=== PATIENT | male | born 1940 | race Caucasian/White ===

== ENCOUNTER 2021-03-25 16:23 | Inpatient (IN) ==
[2021-03-26] MEDS ORDERED: Benzonatate 100 MG CAPSULE PO PRN (02:19)
[2021-03-26] MEDS ORDERED: Naloxone 0.4 MG/ML INJ IVP PRN (02:20)
[2021-03-26] MEDS ORDERED: Ondansetron 4 MG/2 ML VIAL IVP PRN (02:20)
[2021-03-26] MEDS ORDERED: 0.9 % Sodium Chloride 1,000 ML IVC SCH (02:30)
[2021-03-26 04:30] LABS: Basophils % 0.2 %; Eosinophils # 0.1 K/mcL (0.0-0.6); Eosinophils % 1.1 %; Hematocrit 28.5 % (37.5-50.1); Hemoglobin 9.1 g/dL (12.9-16.9); Immature Granulocytes % 1.8 % (0-4); Lymphocytes # 0.6 K/mcL (0.6-4.6); Lymphocytes % 10.4 %; Mean Corpuscular HGB Conc 31.9 g/dL (31.6-35.5); Mean Corpuscular Hemoglobin 28.6 pg (28.0-33.3); Mean Corpuscular Volume 89.6 fL (83.0-100.0); Mean Platelet Volume 10.8 fL (9.4-12.4); Monocytes # 0.5 K/mcL (0.0-1.3); Monocytes % 9.5 %; Neutrophils # 4.2 K/mcL (1.6-8.9); Platelet Count 263 K/mcL (140-400); Red Blood Count 3.18 M/mcL (4.19-5.50); Red Cell Distribution Width 18.4 % (11.5-14.5); White Blood Count 5.5 K/mcL (4.3-11.1)
[2021-03-26] MEDS: Ipratropium 1 PUFF INHALER IH SCH ×5 (04:39→19:22)
[2021-03-26 05:04] LABS: Albumin 3.3 g/dL (3.5-5.7); Albumin/Globulin Ratio 1.1 (1.1-2.2); Bilirubin,Total 0.8 mg/dL (0.3-1.0); Calcium 8.8 mg/dL (8.6-10.3); Globulin 3.1 g/dL (2.4-3.5); Potassium 4.2 mEq/L (3.5-5.1); Total Protein 6.4 g/dL (6.4-8.9)
[2021-03-26] MEDS: valACYclovir 500 MG TABLET PO SCH (09:17)
[2021-03-26] MEDS: Apixaban 5 MG TABLET PO SCH ×2 (09:17→21:35)
[2021-03-26] MEDS: allopurinoL 100 MG TABLET PO SCH (09:18)
[2021-03-26] MEDS: amLODIPine 5 MG TABLET PO SCH (09:18)
[2021-03-27] MEDS: Ipratropium 1 PUFF INHALER IH SCH ×7 (00:07→20:59)
[2021-03-27 01:49] LABS: Hematocrit 25.6 % (37.5-50.1); Hemoglobin 8.1 g/dL (12.9-16.9); Mean Corpuscular HGB Conc 31.6 g/dL (31.6-35.5); Mean Corpuscular Hemoglobin 28.9 pg (28.0-33.3); Mean Corpuscular Volume 91.4 fL (83.0-100.0); Mean Platelet Volume 10.7 fL (9.4-12.4); Platelet Count 217 K/mcL (140-400); Red Cell Distribution Width 18.6 % (11.5-14.5)
[2021-03-27 02:10] LABS: Calcium 8.1 mg/dL (8.6-10.3); Potassium 4.2 mEq/L (3.5-5.1)
[2021-03-27] MEDS: amLODIPine 5 MG TABLET PO SCH (08:42)
[2021-03-27] MEDS: Apixaban 5 MG TABLET PO SCH ×2 (08:43→20:37)
[2021-03-27] MEDS: allopurinoL 100 MG TABLET PO SCH (08:43)
[2021-03-27] MEDS: valACYclovir 500 MG TABLET PO SCH (08:43)
[2021-03-27] MEDS: DAPTOmycin 750 MG in 0.9 % Sodium Chloride 100 ML IVPB SCH (14:22)
[2021-03-27] MEDS: Acetaminophen 325 MG TABLET PO PRN (23:24)
[2021-03-28] MEDS: Ipratropium 1 PUFF INHALER IH SCH ×7 (04:16→23:44)
[2021-03-28 08:04] LABS: Hemoglobin 9.2 g/dL (12.9-16.9); Mean Corpuscular HGB Conc 31.7 g/dL (31.6-35.5); Mean Corpuscular Hemoglobin 29.6 pg (28.0-33.3); Mean Corpuscular Volume 93.2 fL (83.0-100.0); Mean Platelet Volume 10.7 fL (9.4-12.4); Platelet Count 210 K/mcL (140-400); Red Blood Count 3.11 M/mcL (4.19-5.50); Red Cell Distribution Width 18.6 % (11.5-14.5); White Blood Count 6.2 K/mcL (4.3-11.1)
[2021-03-28 08:24] LABS: Calcium 8.2 mg/dL (8.6-10.3); Potassium 3.5 mEq/L (3.5-5.1)
[2021-03-28] MEDS: valACYclovir 500 MG TABLET PO SCH (09:47)
[2021-03-28] MEDS: allopurinoL 100 MG TABLET PO SCH (09:47)
[2021-03-28] MEDS ORDERED: Isovue-370 500 ML BOTTLE IVP ONE ×2 (09:47→13:41)
[2021-03-28] MEDS: amLODIPine 5 MG TABLET PO SCH (09:48)
[2021-03-28 09:57] LABS: Prothrombin Time 22.2 Seconds (9.4-12.1)
[2021-03-28 09:59] LABS: Albumin 3.2 g/dL (3.5-5.7); Albumin/Globulin Ratio 1.1 (1.1-2.2); Globulin 2.8 g/dL (2.4-3.5)
[2021-03-28] MEDS ORDERED: 0.9 % Sodium Chloride 1,000 ML IVC SCH (10:00)
[2021-03-28] MEDS: DAPTOmycin 750 MG in 0.9 % Sodium Chloride 100 ML IVPB SCH (14:40)
[2021-03-28] MEDS ORDERED: Perflutren Lipid Microsphere 1.3 ML in 0.9 % Sodium Chloride 8.7 ML IVP PRN (14:48)
[2021-03-28] MEDS: Lactobacillus 1 EACH CAP.SPRINK PO SCH (23:00)
[2021-03-29] MEDS: Ipratropium 1 PUFF INHALER IH SCH ×4 (04:40→20:14)
[2021-03-29 06:20] LABS: Basophils % 0.2 %; Eosinophils # 0.1 K/mcL (0.0-0.6); Eosinophils % 1.1 %; Immature Granulocytes % 7.2 % (0-4); Lymphocytes # 0.5 K/mcL (0.6-4.6); Lymphocytes % 7.2 %; Mean Corpuscular Hemoglobin 29.3 pg (28.0-33.3); Mean Corpuscular Volume 91.6 fL (83.0-100.0); Monocytes # 0.5 K/mcL (0.0-1.3); Monocytes % 8.1 %; Neutrophils # 4.7 K/mcL (1.6-8.9); Platelet Count 186 K/mcL (140-400); Red Blood Count 2.73 M/mcL (4.19-5.50); Red Cell Distribution Width 18.6 % (11.5-14.5); Segmented Neutrophils % 76.2 %; White Blood Count 6.2 K/mcL (4.3-11.1)
[2021-03-29 06:53] LABS: Albumin 2.9 g/dL (3.5-5.7); Albumin/Globulin Ratio 1.1 (1.1-2.2); Bilirubin,Total 0.8 mg/dL (0.3-1.0); Calcium 7.9 mg/dL (8.6-10.3); Globulin 2.6 g/dL (2.4-3.5); Magnesium 1.3 mg/dL (1.6-2.6); Phosphorous 3.4 mg/dL (2.7-4.5); Potassium 3.4 mEq/L (3.5-5.1); Total Protein 5.5 g/dL (6.4-8.9)
[2021-03-29 06:54] LABS: Anisocytosis 1+ (Not Present); Platelet Estimate Normal (Normal)
[2021-03-29] MEDS: allopurinoL 100 MG TABLET PO SCH (08:05)
[2021-03-29] MEDS: amLODIPine 5 MG TABLET PO SCH (08:06)
[2021-03-29] MEDS: Lactobacillus 1 EACH CAP.SPRINK PO SCH ×2 (08:31→19:34)
[2021-03-29] MEDS: Acetaminophen 325 MG TABLET PO PRN (08:39)
[2021-03-29] MEDS: Furosemide 40 MG TABLET PO SCH (15:36)
[2021-03-29] MEDS: DAPTOmycin 750 MG in 0.9 % Sodium Chloride 100 ML IVPB SCH (15:36)
[2021-03-30] MEDS: Acetaminophen 325 MG TABLET PO PRN (01:35)
[2021-03-30] MEDS: Ipratropium 1 PUFF INHALER IH SCH ×4 (03:42→20:43)
[2021-03-30 06:53] LABS: Hematocrit 24.4 % (37.5-50.1); Hemoglobin 7.7 g/dL (12.9-16.9); Mean Corpuscular HGB Conc 31.6 g/dL (31.6-35.5); Mean Corpuscular Hemoglobin 28.9 pg (28.0-33.3); Mean Corpuscular Volume 91.7 fL (83.0-100.0); Mean Platelet Volume 10.8 fL (9.4-12.4); Platelet Count 179 K/mcL (140-400); Red Blood Count 2.66 M/mcL (4.19-5.50); Red Cell Distribution Width 18.6 % (11.5-14.5); White Blood Count 6.3 K/mcL (4.3-11.1)
[2021-03-30 07:17] LABS: Anisocytosis 1+ (Not Present); Lymphocytes # 0.4 K/mcL (0.6-4.6); Monocytes # 0.3 K/mcL (0.0-1.3); Neutrophils # 5.7 K/mcL (1.6-8.9); Platelet Estimate Normal (Normal)
[2021-03-30 07:18] LABS: Albumin 2.8 g/dL (3.5-5.7); Albumin/Globulin Ratio 1.1 (1.1-2.2); Bilirubin,Total 0.7 mg/dL (0.3-1.0); Calcium 7.9 mg/dL (8.6-10.3); Globulin 2.6 g/dL (2.4-3.5); Phosphorous 3.5 mg/dL (2.7-4.5); Potassium 3.5 mEq/L (3.5-5.1); Total Protein 5.4 g/dL (6.4-8.9)
[2021-03-30 07:35] LABS: Ferritin 820 ng/mL (20-250); Iron < 10 mcg/dL (65-175); Transferrin 114 mg/dL (203-362)
[2021-03-30 07:38] LABS: Folate 8.5 ng/mL (3.0-16.0)
[2021-03-30 08:41] LABS: Magnesium 1.5 mg/dL (1.6-2.6)
[2021-03-30] MEDS: Furosemide 40 MG TABLET PO SCH ×2 (09:30→15:54)
[2021-03-30] MEDS: allopurinoL 100 MG TABLET PO SCH (09:30)
[2021-03-30] MEDS: Lactobacillus 1 EACH CAP.SPRINK PO SCH ×2 (09:30→20:00)
[2021-03-30] MEDS: amLODIPine 5 MG TABLET PO SCH (09:31)
[2021-03-30] MEDS: DAPTOmycin 750 MG in 0.9 % Sodium Chloride 100 ML IVPB SCH (15:52)
[2021-03-30] MEDS ORDERED: DAPTOmycin 250 MG in 0.9 % Sodium Chloride 100 ML IVPB ONE ×2 (16:00→17:00)
[2021-03-31] MEDS: Ipratropium 1 PUFF INHALER IH SCH ×4 (04:29→20:58)
[2021-03-31 05:11] LABS: Basophils % 0.1 %; Eosinophils # 0.1 K/mcL (0.0-0.6); Eosinophils % 1.4 %; Hematocrit 23.9 % (37.5-50.1); Hemoglobin 7.8 g/dL (12.9-16.9); Immature Granulocytes % 2.7 % (0-4); Lymphocytes # 0.4 K/mcL (0.6-4.6); Lymphocytes % 5.8 %; Mean Corpuscular HGB Conc 32.6 g/dL (31.6-35.5); Mean Corpuscular Hemoglobin 29.9 pg (28.0-33.3); Mean Corpuscular Volume 91.6 fL (83.0-100.0); Mean Platelet Volume 11.3 fL (9.4-12.4); Monocytes # 0.5 K/mcL (0.0-1.3); Monocytes % 6.6 %; Neutrophils # 5.9 K/mcL (1.6-8.9); Platelet Count 182 K/mcL (140-400); Red Blood Count 2.61 M/mcL (4.19-5.50); Red Cell Distribution Width 18.6 % (11.5-14.5); Segmented Neutrophils % 83.4 %; White Blood Count 7.1 K/mcL (4.3-11.1)
[2021-03-31 05:42] LABS: Albumin 2.7 g/dL (3.5-5.7); Bilirubin,Total 0.7 mg/dL (0.3-1.0); Calcium 7.8 mg/dL (8.6-10.3); Globulin 2.8 g/dL (2.4-3.5); Magnesium 1.4 mg/dL (1.6-2.6); Phosphorous 2.8 mg/dL (2.7-4.5); Potassium 3.8 mEq/L (3.5-5.1); Total Protein 5.5 g/dL (6.4-8.9)
[2021-03-31 06:15] LABS: Anisocytosis 1+ (Not Present); Large Platelets Present (Not Present); Platelet Estimate Normal (Normal)
[2021-03-31] MEDS: Lactobacillus 1 EACH CAP.SPRINK PO SCH ×2 (11:56→20:43)
[2021-03-31] MEDS: amLODIPine 5 MG TABLET PO SCH (11:56)
[2021-03-31] MEDS: Furosemide 40 MG TABLET PO SCH ×2 (11:57→16:55)
[2021-03-31] MEDS: allopurinoL 100 MG TABLET PO SCH (11:57)
[2021-03-31] MEDS: DAPTOmycin 1,000 MG in 0.9 % Sodium Chloride 100 ML IVPB SCH (15:49)
[2021-04-01] MEDS: Ipratropium 1 PUFF INHALER IH SCH ×4 (04:11→21:20)
[2021-04-01 05:23] LABS: Calcium 7.9 mg/dL (8.6-10.3); Magnesium 1.5 mg/dL (1.6-2.6); Potassium 3.6 mEq/L (3.5-5.1)
[2021-04-01] MEDS: Lactobacillus 1 EACH CAP.SPRINK PO SCH ×2 (08:21→20:51)
[2021-04-01] MEDS: Furosemide 40 MG TABLET PO SCH ×2 (08:21→16:16)
[2021-04-01] MEDS: amLODIPine 5 MG TABLET PO SCH (08:22)
[2021-04-01] MEDS: allopurinoL 100 MG TABLET PO SCH (08:22)
[2021-04-01 10:04] LABS: Basophils % 0.1 %; Eosinophils % 0.6 %; Hematocrit 26.6 % (37.5-50.1); Hemoglobin 8.3 g/dL (12.9-16.9); Immature Granulocytes % 2.5 % (0-4); Lymphocytes # 0.5 K/mcL (0.6-4.6); Mean Corpuscular HGB Conc 31.2 g/dL (31.6-35.5); Mean Corpuscular Hemoglobin 28.7 pg (28.0-33.3); Mean Platelet Volume 11.2 fL (9.4-12.4); Monocytes # 0.4 K/mcL (0.0-1.3); Monocytes % 6.1 %; Neutrophils # 5.7 K/mcL (1.6-8.9); Platelet Count 190 K/mcL (140-400); Red Blood Count 2.89 M/mcL (4.19-5.50); Red Cell Distribution Width 18.4 % (11.5-14.5); Segmented Neutrophils % 83.7 %; White Blood Count 6.8 K/mcL (4.3-11.1)
[2021-04-01 12:27] LABS: Anisocytosis 1+ (Not Present); Large Platelets Present (Not Present); Platelet Estimate Normal (Normal)
[2021-04-01] MEDS: DAPTOmycin 1,000 MG in 0.9 % Sodium Chloride 100 ML IVPB SCH (16:16)
[2021-04-01] MEDS: Acetaminophen 325 MG TABLET PO PRN (18:15)
[2021-04-02] MEDS: Ipratropium 1 PUFF INHALER IH SCH ×4 (03:13→20:55)
[2021-04-02 07:19] LABS: Hematocrit 25.1 % (37.5-50.1); Hemoglobin 8.2 g/dL (12.9-16.9); Lymphocytes # 0.2 K/mcL (0.6-4.6); Mean Corpuscular HGB Conc 32.7 g/dL (31.6-35.5); Mean Corpuscular Hemoglobin 29.4 pg (28.0-33.3); Mean Platelet Volume 11.1 fL (9.4-12.4); Platelet Count 178 K/mcL (140-400); Red Blood Count 2.79 M/mcL (4.19-5.50); Red Cell Distribution Width 18.1 % (11.5-14.5); White Blood Count 5.8 K/mcL (4.3-11.1)
[2021-04-02] MEDS: Furosemide 40 MG TABLET PO SCH ×2 (07:26→18:07)
[2021-04-02] MEDS: Lactobacillus 1 EACH CAP.SPRINK PO SCH ×2 (07:26→20:40)
[2021-04-02] MEDS: amLODIPine 5 MG TABLET PO SCH (07:26)
[2021-04-02] MEDS: allopurinoL 100 MG TABLET PO SCH (07:26)
[2021-04-02 07:36] LABS: Calcium 7.3 mg/dL (8.6-10.3); Magnesium 1.3 mg/dL (1.6-2.6); Potassium 3.2 mEq/L (3.5-5.1)
[2021-04-02 08:30] LABS: Monocytes # 0.2 K/mcL (0.0-1.3); Neutrophils # 5.2 K/mcL (1.6-8.9); Platelet Estimate Normal (Normal)
[2021-04-02 08:31] LABS: Anisocytosis 1+ (Not Present)
[2021-04-02] MEDS: DAPTOmycin 1,000 MG in 0.9 % Sodium Chloride 100 ML IVPB SCH (14:52)
[2021-04-03] MEDS: Ipratropium 1 PUFF INHALER IH SCH ×4 (05:26→21:10)
[2021-04-03] MEDS: Furosemide 40 MG TABLET PO SCH ×2 (08:47→17:04)
[2021-04-03] MEDS: amLODIPine 5 MG TABLET PO SCH (08:48)
[2021-04-03] MEDS: Lactobacillus 1 EACH CAP.SPRINK PO SCH ×2 (08:48→22:16)
[2021-04-03] MEDS: allopurinoL 100 MG TABLET PO SCH (08:48)
[2021-04-03] MEDS ORDERED: Colchicine 0.6 MG TABLET PO ONE (10:13)
[2021-04-03] MEDS: Indomethacin 25 MG CAPSULE PO SCH ×2 (10:43→17:36)
[2021-04-03] MEDS: Acetaminophen 325 MG TABLET PO PRN (14:17)
[2021-04-03] MEDS: DAPTOmycin 1,000 MG in 0.9 % Sodium Chloride 100 ML IVPB SCH (14:17)
[2021-04-03] MEDS: Magnesium Oxide 400 MG TABLET PO SCH (22:16)
[2021-04-04] MEDS: Ipratropium 1 PUFF INHALER IH SCH ×4 (04:04→20:28)
[2021-04-04 04:13] LABS: Basophils % 0.2 %; Eosinophils # 0.2 K/mcL (0.0-0.6); Eosinophils % 3.2 %; Hematocrit 25.9 % (37.5-50.1); Hemoglobin 8.5 g/dL (12.9-16.9); Immature Granulocytes % 7.4 % (0-4); Lymphocytes # 0.2 K/mcL (0.6-4.6); Mean Corpuscular HGB Conc 32.8 g/dL (31.6-35.5); Mean Corpuscular Hemoglobin 29.5 pg (28.0-33.3); Mean Corpuscular Volume 89.9 fL (83.0-100.0); Mean Platelet Volume 11.7 fL (9.4-12.4); Monocytes # 0.2 K/mcL (0.0-1.3); Monocytes % 3.1 %; Neutrophils # 4.6 K/mcL (1.6-8.9); Platelet Count 163 K/mcL (140-400); Red Blood Count 2.88 M/mcL (4.19-5.50); Red Cell Distribution Width 17.5 % (11.5-14.5); Segmented Neutrophils % 82.1 %; White Blood Count 5.6 K/mcL (4.3-11.1)
[2021-04-04 04:31] LABS: Calcium 7.5 mg/dL (8.6-10.3); Potassium 3.4 mEq/L (3.5-5.1)
[2021-04-04 04:48] LABS: Anisocytosis 1+ (Not Present); Platelet Estimate Normal (Normal)
[2021-04-04 04:49] LABS: Large Platelets Present (Not Present)
[2021-04-04] MEDS ORDERED: Potassium Effervescent 25 MEQ TABLET.EFF PO ONE (07:55)
[2021-04-04] MEDS: Indomethacin 25 MG CAPSULE PO SCH ×3 (09:13→17:39)
[2021-04-04] MEDS: Lactobacillus 1 EACH CAP.SPRINK PO SCH ×2 (09:13→20:54)
[2021-04-04] MEDS: Furosemide 40 MG TABLET PO SCH ×2 (09:14→17:33)
[2021-04-04] MEDS: Magnesium Oxide 400 MG TABLET PO SCH ×2 (09:14→20:55)
[2021-04-04] MEDS: amLODIPine 5 MG TABLET PO SCH (09:14)
[2021-04-04] MEDS: allopurinoL 100 MG TABLET PO SCH (09:14)
[2021-04-04] MEDS: Colchicine 0.6 MG TABLET PO SCH (12:33)
[2021-04-04] MEDS: DAPTOmycin 1,000 MG in 0.9 % Sodium Chloride 100 ML IVPB SCH (16:25)
[2021-04-05] MEDS: Ipratropium 1 PUFF INHALER IH SCH ×4 (04:12→20:24)
[2021-04-05] MEDS: Furosemide 40 MG TABLET PO SCH ×2 (09:58→17:08)
[2021-04-05] MEDS: amLODIPine 5 MG TABLET PO SCH (09:59)
[2021-04-05] MEDS: Lactobacillus 1 EACH CAP.SPRINK PO SCH ×2 (10:01→21:21)
[2021-04-05] MEDS: Indomethacin 25 MG CAPSULE PO SCH (10:01)
[2021-04-05] MEDS: Magnesium Oxide 400 MG TABLET PO SCH ×2 (10:01→21:23)
[2021-04-05] MEDS: Colchicine 0.6 MG TABLET PO SCH (10:02)
[2021-04-05] MEDS: allopurinoL 100 MG TABLET PO SCH (10:02)
[2021-04-05 12:15] LABS: Calcium 7.6 mg/dL (8.6-10.3); Magnesium 1.8 mg/dL (1.6-2.6)
[2021-04-05 12:24] LABS: Potassium 4.3 mEq/L (3.5-5.1)
[2021-04-05] MEDS: DAPTOmycin 1,000 MG in 0.9 % Sodium Chloride 100 ML IVPB SCH (16:16)
[2021-04-06] MEDS: Ipratropium 1 PUFF INHALER IH SCH ×4 (04:06→20:03)
[2021-04-06] MEDS: 0.9 % Sodium Chloride 1,000 ML IVC SCH ×2 (09:25→21:17)
[2021-04-06] MEDS: Lactobacillus 1 EACH CAP.SPRINK PO SCH ×2 (09:31→21:17)
[2021-04-06] MEDS: allopurinoL 100 MG TABLET PO SCH (09:31)
[2021-04-06] MEDS: amLODIPine 5 MG TABLET PO SCH (09:31)
[2021-04-06] MEDS: Furosemide 40 MG TABLET PO SCH ×2 (09:31→16:33)
[2021-04-06] MEDS: Magnesium Oxide 400 MG TABLET PO SCH ×2 (09:32→21:17)
[2021-04-06] MEDS: Acetaminophen 325 MG TABLET PO PRN (16:32)
[2021-04-07] MEDS: Ipratropium 1 PUFF INHALER IH SCH ×4 (03:37→19:50)
[2021-04-07 05:37] LABS: Hematocrit 25.4 % (37.5-50.1); Hemoglobin 8.1 g/dL (12.9-16.9); Mean Corpuscular HGB Conc 31.9 g/dL (31.6-35.5); Mean Corpuscular Hemoglobin 28.6 pg (28.0-33.3); Mean Corpuscular Volume 89.8 fL (83.0-100.0); Mean Platelet Volume 11.9 fL (9.4-12.4); Platelet Count 159 K/mcL (140-400); Red Blood Count 2.83 M/mcL (4.19-5.50); Red Cell Distribution Width 18.3 % (11.5-14.5)
[2021-04-07 05:59] LABS: Calcium 7.3 mg/dL (8.6-10.3); Potassium 4.3 mEq/L (3.5-5.1)
[2021-04-07] MEDS: amLODIPine 5 MG TABLET PO SCH (07:25)
[2021-04-07] MEDS: allopurinoL 100 MG TABLET PO SCH (07:25)
[2021-04-07] MEDS: Lactobacillus 1 EACH CAP.SPRINK PO SCH ×2 (07:25→21:56)
[2021-04-07] MEDS: Furosemide 40 MG TABLET PO SCH ×2 (07:26→17:44)
[2021-04-07] MEDS: Magnesium Oxide 400 MG TABLET PO SCH ×2 (07:26→21:55)
[2021-04-07] MEDS: Acetaminophen 325 MG TABLET PO PRN (17:26)
[2021-04-07 19:14] LABS: Adenovirus Not Detected (Not Detect); Bordetella Pertussis Not Detected (Not Detect); Chlamydophila pneumoniae Not Detected (Not Detect); Coronavirus 229E Not Detected (Not Detect); Coronavirus HKU1 Not Detected (Not Detect); Coronavirus NL63 Not Detected (Not Detect); Coronavirus OC43 Not Detected (Not Detect); Human Metapneumovirus Not Detected (Not Detect); Human Rhinovirus/Enterovirus DETECTED (Not Detect); Influenza A Subtype 2009 H1 Not Detected (Not Detect); Influenza B Not Detected (Not Detect); Mycoplasma pneumoniae Not Detected (Not Detect); Parainfluenza Virus 1 Not Detected (Not Detect); Parainfluenza Virus 2 Not Detected (Not Detect); Parainfluenza Virus 3 Not Detected (Not Detect); Parainfluenza Virus 4 Not Detected (Not Detect); Respiratory Syncytial Virus Not Detected (Not Detect)
[2021-04-07 19:20] LABS: SARS-CoV-2 DETECTED (Not Detect)
[2021-04-08] MEDS: Ipratropium 1 PUFF INHALER IH SCH ×4 (03:57→20:18)
[2021-04-08 06:29] LABS: Hematocrit 27.4 % (37.5-50.1); Hemoglobin 8.6 g/dL (12.9-16.9); Mean Corpuscular HGB Conc 31.4 g/dL (31.6-35.5); Mean Corpuscular Hemoglobin 28.6 pg (28.0-33.3); Mean Platelet Volume 11.9 fL (9.4-12.4); Platelet Count 185 K/mcL (140-400); Red Blood Count 3.01 M/mcL (4.19-5.50); Red Cell Distribution Width 18.6 % (11.5-14.5); White Blood Count 6.7 K/mcL (4.3-11.1)
[2021-04-08 06:56] LABS: Calcium 7.6 mg/dL (8.6-10.3); Potassium 4.4 mEq/L (3.5-5.1)
[2021-04-08] MEDS: amLODIPine 5 MG TABLET PO SCH (09:17)
[2021-04-08] MEDS: Magnesium Oxide 400 MG TABLET PO SCH ×2 (09:17→21:44)
[2021-04-08] MEDS: allopurinoL 100 MG TABLET PO SCH (09:18)
[2021-04-08] MEDS: Lactobacillus 1 EACH CAP.SPRINK PO SCH ×2 (09:18→21:42)
[2021-04-08] MEDS: Furosemide 40 MG TABLET PO SCH ×2 (09:18→17:12)
[2021-04-08] MEDS: Haloperidol Oral Conc 10 MG/5 ML UDC PO SCH ×2 (14:43→21:44)
[2021-04-08] MEDS ORDERED: Piperacillin/Tazobactam 3.375 GM in 0.9 % Sodium Chloride Mini Bag 100 ML IVPB SCH (19:00)
[2021-04-09] MEDS: Ipratropium 1 PUFF INHALER IH SCH ×3 (04:53→16:10)
[2021-04-09] MEDS: amLODIPine 5 MG TABLET PO SCH (09:05)
[2021-04-09] MEDS: Lactobacillus 1 EACH CAP.SPRINK PO SCH (09:05)
[2021-04-09] MEDS: Haloperidol Oral Conc 10 MG/5 ML UDC PO SCH ×2 (09:05→16:11)
[2021-04-09] MEDS: Magnesium Oxide 400 MG TABLET PO SCH (09:05)
[2021-04-09] MEDS: Furosemide 40 MG TABLET PO SCH (09:05)
[2021-04-09] MEDS: allopurinoL 100 MG TABLET PO SCH (09:06)
[2021-04-09 15:53] VITALS: BP 129/86; PULSE 95; TEMP 98.7; O2SAT 94
== END 2021-04-09 16:15 | disposition hospice, home (50) | DRG 871 ==
LOC: 3ANU → SUATTDRO 03-26 02:27
PROVIDERS: ADMIT Pharmacist; ATTEND Internal Medicine